=== PATIENT | male | born 1970 | race Caucasian/White ===

== ENCOUNTER 2018-03-11 02:07 | Emergency (ER) | payer BC, OTHER ==
[2018-03-11] MEDS ORDERED: Diphtheria,Pertussis(Acell),Tetanus Vaccine 0.5 ML SDV IM ONE (03:16)
[2018-03-11] MEDS ORDERED: Acetaminophen/HYDROcodone 325-5 MG Tab PO ONE (04:16)
[2018-03-11] MEDS ORDERED: Cephalexin 500 MG Cap PO ONE (04:16)
--- NOTE | 2018-03-11 16:26 | ER ---
DATE SEEN: 03/11/2018 HISTORY OF PRESENT ILLNESS: This 47-year-old male who was working in a [employer] plant, got his right dominant hand fourth and fifth fingertips crushed in a machine today. He has sensation to both fingertips. No previous finger injuries. No serious medical problems or health problems. MEDICATIONS: He is not on any medicines. ALLERGIES: No allergies. PHYSICAL EXAMINATION: Examination demonstrates subungual hematoma at the proximal third finger (minimal metal) and also a proximal nail-plate disruption on the proximal ulnar third of the nail within proximal plate everted over the cuticle. X-ray reveals a comminuted distal tuft fracture of the fourth finger. There are no structures that warrant surgical suture placement. With gentle pressure and moderate discomfort, the patient has had the proximal base of the nail realigned under the cuticle and the proximal dermis. This would not stay. Consequently, a pressure dressing was placed to maximize this return of the proximal nail plate to its original position (this allows for new nail growth to track along this appropriately). Wound was cleansed. No injection was performed, and the patient received a tetanus shot. ASSESSMENT: 1. Open fracture of fourth distal phalangeal tuft, nondisplaced. 2. Partial displaced, avulsed proximal ulnar half of the dorsal nail plate from the cuticle with manual replacement to its original position. 3. Contusion of third right distal finger tuft without fracture. PLAN: 1. Follow up with his doctor in 7 days. 2. Elevate his hand above his heart level to diminish the swelling. 3. The patient to not carry more than 10 pounds and push and grasp more than 10 pounds with his right hand and not to push more than 20 pounds for the next 3 days. 4. May return to work. 5. Keflex 500 mg t.i.d., 21 tablets prescribed. Vicodin 8 tablets prescribed, one q.4 hours for pain breakthrough that is not responsive to a 1000 mg of Tylenol and 600 mg of ibuprofen taken together every 6 hours. He is not to take any narcotics 7 hours before going to work. He must not drive, operate machines, walk up ladders, rafters, or be in high positions 7 hours after he has taken these medicines. /[id number] DOMONIQUE/FARIBAL MTDD
--- NOTE | 2018-03-12 11:28 | CR ---
INDICATION: Third and fourth fingers crushed. RIGHT HAND: Three views of the right hand were obtained and revealed comminuted fracture of the shaft and ungual tuft of the fourth finger. Fracture fragments, for the most part, are in good position and alignment, with one small fracture fragment suggested offset somewhat. Degenerative changes are noted at the DIP joint of the fourth finger and to a milder extent at the third finger. No other bone or joint abnormality was identified. MTDD
== END 2018-03-11 04:30 | disposition home or self-care (01) ==
LOC: FB.ED 02:07
DX: S62.664B Nondisplaced fracture of distal phalanx of right ring finger, initial encounter for open fracture (principal); S61.302A Unspecified open wound of right middle finger with damage to nail, initial encounter; W31.9XXA Contact with unspecified machinery, initial encounter
CPT/HCPCS: 73130-RT; 90471; 90715; 99000; 99283; A9270-GY

== ENCOUNTER 2023-08-10 07:55 | Day surgery (SDC) | payer BC, OTHER ==
[~2023-08-10 07:55] MED LIST: Lactated Ringers 1,000 ML IV SCH; Sodium Chloride 0.9% 10 ML Syringe FLUSH PRN
[2023-08-10] MEDS ORDERED: Propofol 200 MG/20 ML SDV IV ONE (07:56)
[2023-08-10] MEDS ORDERED: Simethicone Drops 40 MG/0.6 ML 30 ML Bottle PO ONE (09:26)
== END 2023-08-10 10:36 | disposition home or self-care (01) ==
LOC: FB.SDS 07:55
PROVIDERS: ATTEND Surgery
DX: Z12.11 Encounter for screening for malignant neoplasm of colon (principal); K40.90 Unilateral inguinal hernia, without obstruction or gangrene, not specified as recurrent; E78.5 Hyperlipidemia, unspecified; Z79.899 Other long term (current) drug therapy
CPT/HCPCS: 00812; 45378; A9270; J2704; J7120

== ENCOUNTER 2023-09-09 06:22 | Day surgery (SDC) | payer BC, OTHER ==
[~2023-09-09 06:22] MED LIST changes: -Lactated Ringers 1,000 ML IV SCH
[2023-09-09] MEDS ORDERED: Midazolam 1 MG/ML 2 ML SDV IV ONE (06:23)
[2023-09-09] MEDS ORDERED: Ketorolac 30 MG/ML SDV IVPUSH ONE (06:23)
[2023-09-09] MEDS ORDERED: Propofol 200 MG/20 ML SDV IV ONE ×2 (06:23)
[2023-09-09] MEDS ORDERED: Ondansetron 4 MG/2 ML SDV IVPUSH ONE (06:23)
[2023-09-09] MEDS ORDERED: fentaNYL 100 MCG/2 ML SDV IV ONE (06:23)
[2023-09-09] MEDS: Lactated Ringers 1,000 ML IV SCH (07:08)
[2023-09-09 07:24] VITALS: BP 113/81; PULSE 60
[2023-09-09] MEDS: ceFAZolin 2 GM Vial IVPUSH ONE (07:26)
[2023-09-09] MEDS ORDERED: ceFAZolin 2 GM in Sodium Chloride 0.9% 100 ML IV ONE (07:30)
[2023-09-09] MEDS: Lidocaine 1% with EPINEPHrine 1:100,000 20 ML MDV INJECT ONE (07:53)
[2023-09-09] MEDS: Bupivacaine 0.5% 30 ML SDV INJECT ONE (07:53)
== END 2023-09-09 11:20 | disposition home or self-care (01) ==
LOC: FB.SDS 06:22
PROVIDERS: ATTEND Surgery
DX: K40.90 Unilateral inguinal hernia, without obstruction or gangrene, not specified as recurrent (principal); E78.5 Hyperlipidemia, unspecified; Z79.899 Other long term (current) drug therapy
CPT/HCPCS: 88302; C1781; J0690; J1885; J2250; J2405; J2704; J3010; J3490; J7120